=== PATIENT | female | born 1940 | race Caucasian/White ===

== ENCOUNTER → 2016-08-13 | Outpatient (CLI) | payer MEDICARE, BC ==
[~2016-08-13] MED LIST: ATOR40TA78 PO; DOCU100C PO; HYDR25TA6 PO; LEVO125T45 PO; LOSA50TA6 PO; METF500T4 PO; OXYC5TAB2 PO
== END | disposition home or self-care (01) ==
LOC: CFH 07:04
PROVIDERS: ATTEND Family Medicine
DX: M79.89 Other specified soft tissue disorders (principal)

== ENCOUNTER 2018-07-20 11:45 | Inpatient (IN) | payer MEDICARE, BC ==
[~2018-07-20] VITALS: Ht 160 cm; Wt 95.0 kg
[~2018-07-20 11:45] MED LIST changes: +DOCU-180 PO; -DOCU100C PO; -LEVO125T45 PO; +LEVO125T63 PO; +LOSA50TA14 PO; -LOSA50TA6 PO; +METF500T17 PO; -METF500T4 PO
[2018-07-20] MEDS ORDERED: SODIUM CHLORIDE FLUSH 10ML SYR IVF ONE (12:00)
--- NOTE | 2018-07-20 12:02 | NUR ---
BIB [facility] FROM URGENT CARE, SOB/COUGH X3D, RA SAT 77%, PT PLACED ON 2L NC AND GIVEN ALBUTEROL TX BY [facility], O2 87% ON ARRIVAL O2 INCREASED TO 4L. AT BEDSIDE. MD AT BEDSIDE
[2018-07-20 12:16] LABS: BASOPHILS # (AUTO) 0.03 x10^3/uL (0-0.1); BASOPHILS % (AUTO) 1 % (0-1); EOSINOPHILS # (AUTO) 0.01 x10^3/uL (0-0.4); EOSINOPHILS % (AUTO) 0 % (1-7); LYMPHOCYTES # (AUTO) 0.96 x10^3/uL (1-3.4); LYMPHOCYTES % (AUTO) 13 % (22-44); MD NO; MEAN CORPUSCULAR HEMOGLOBIN 29.9 pg (27.0-34.8); MEAN CORPUSCULAR HGB CONC 32.4 g/dL (32.4-35.8); MEAN CORPUSCULAR VOLUME 92.3 fL (80-100); MEAN PLATELET VOLUME 8.9 fL (7.4-10.4); MONOCYTES # (AUTO) 0.65 x10^3/uL (0.2-0.8); MONOCYTES % (AUTO) 9 % (2-9); NEUTROPHILS # (AUTO) 5.58 x10^3/uL (1.8-6.8); NEUTROPHILS % (AUTO) 77 % (42-75); PLATELET COUNT 197 x10^3/uL (130-400); RED BLOOD COUNT 5.35 x10^6/uL (3.82-5.3)
[2018-07-20] MEDS ORDERED: ALBUTEROL/IPRATROPIUM 2.5MG/0.5MG, 3 ML ONE (12:29)
[2018-07-20 12:30] LABS: ALBUMIN 3.5 g/dL (3.4-5.0); ANION GAP 8 mmol/L (5-15); CALCIUM 8.2 mg/dL (8.5-10.1); CHLORIDE 102 mmol/L (98-107)
[2018-07-20] MEDS ORDERED: ACETAMINOPHEN 500 MG TABLET PO ONE (12:30)
[2018-07-20] MEDS: ALBUTEROL/IPRATROPIUM 2.5MG/0.5MG, 3 ML NPPB PRN ×2 (12:32→15:40)
[2018-07-20 12:38] LABS: ALANINE AMINOTRANSFERASE 24 U/L (12-78); ALKALINE PHOSPHATASE 72 U/L (45-117); BILIRUBIN,TOTAL 0.6 mg/dL (0.2-1.0); CREATININE 0.88 mg/dL (0.55-1.02); T4 (THYROXINE) 12.9 mcg/dL (4.8-13.9); TOTAL PROTEIN 7.4 g/dL (6.4-8.2); TROPONIN I < 0.015 ng/mL (0.000-0.045)
[2018-07-20] MEDS ORDERED: ACETAMINOPHEN 500 MG TABLET ONE (12:41)
[2018-07-20] MEDS ORDERED: LOSA100T14 PO (12:57)
[2018-07-20] MEDS ORDERED: LEVO137T25 PO (12:59)
[2018-07-20] MEDS ORDERED: SODIUM CHLORIDE FLUSH 10ML SYR IVF PRN (13:00)
--- NOTE | 2018-07-20 13:03 | NUR ---
PT RESTING IN [facility], AWAITING LAB AND RAD RESULTS, PT TB ADM. FAMILY AT BEDSIDE. PT ON MONITOR, VSS ON 5L NC. CALL LIGHT WITHIN REACH
--- NOTE | 2018-07-20 13:43 | NUR ---
REPORT TO ZULEIKA GUILLERMO
[2018-07-20] MEDS ORDERED: ALBUTEROL/IPRATROPIUM 2.5MG/0.5MG, 3 ML NPPB PRN (14:30)
[2018-07-20 14:31] VITALS: BP 114/70
[2018-07-20] MEDS ORDERED: CYCLOBENZAPRINE 10 MG TABLET PO PRN (15:00)
[2018-07-20] MEDS ORDERED: hydrALAzine 20 MG/ML, 1ML IVPush PRN (15:00)
[2018-07-20] MEDS ORDERED: morphine SULFATE 10 MG/ML, 1ML IVPush PRN (15:00)
[2018-07-20] MEDS ORDERED: BUTALB/APAP/CAFFEINE 50MG/325MG/40MG PO PRN (15:00)
[2018-07-20] MEDS ORDERED: ONDANSETRON 2MG/ML, 2ML IVPush PRN (15:00)
[2018-07-20] MEDS ORDERED: ALBUTEROL/IPRATROPIUM 2.5MG/0.5MG, 3 ML NPPB SCH ×2 (15:00)
[2018-07-20] MEDS ORDERED: DOCUSATE 100 MG CAPSULE PO PRN (15:00)
[2018-07-20] MEDS ORDERED: DEXTROSE 4 GM TAB.CHEW PO PRN (15:30)
[2018-07-20] MEDS ORDERED: GLUCAGON 1 MG IM PRN (15:30)
[2018-07-20] MEDS ORDERED: DEXTROSE 50%, 50ML SYRINGE IVPush PRN (15:30)
[2018-07-20] MEDS ORDERED: LOSARTAN 50MG TABLET ONE (15:52)
[2018-07-20] MEDS: AZITHROMYCIN 500 MG in SODIUM CHLORIDE 0.9% 250 ML IV SCH (15:55)
[2018-07-20] MEDS: LOSARTAN 50MG TABLET PO SCH (16:04)
[2018-07-20] MEDS: INSULIN LISPRO 100 UNITS/ML, PEN SQ-INSULIN SCH ×2 (16:06→20:33)
[2018-07-20 18:59] VITALS: BP 102/64
[2018-07-20] MEDS: ALBUTEROL/IPRATROPIUM 2.5MG/0.5MG, 3 ML NPPB SCH ×2 (19:00→20:00)
[2018-07-20] MEDS: SODIUM CHLORIDE FLUSH 10ML SYR IVF SCH (20:32)
[2018-07-20] MEDS: ATORVASTATIN 40 MG TABLET PO SCH (20:33)
[2018-07-20] MEDS: ENOXAPARIN 40 MG/0.4 ML SQ SCH (20:33)
[2018-07-21 01:46] VITALS: BP 96/65
[2018-07-21 05:30] LABS: BASOPHILS # (AUTO) 0.02 x10^3/uL (0-0.1); BASOPHILS % (AUTO) 0 % (0-1); EOSINOPHILS % (AUTO) 0 % (1-7); LYMPHOCYTES # (AUTO) 1.15 x10^3/uL (1-3.4); LYMPHOCYTES % (AUTO) 18 % (22-44); MD NO; MEAN CORPUSCULAR HEMOGLOBIN 30.2 pg (27.0-34.8); MEAN CORPUSCULAR HGB CONC 32.4 g/dL (32.4-35.8); MEAN CORPUSCULAR VOLUME 93.2 fL (80-100); MEAN PLATELET VOLUME 9.2 fL (7.4-10.4); MONOCYTES # (AUTO) 0.58 x10^3/uL (0.2-0.8); MONOCYTES % (AUTO) 9 % (2-9); NEUTROPHILS # (AUTO) 4.66 x10^3/uL (1.8-6.8); NEUTROPHILS % (AUTO) 73 % (42-75); PLATELET COUNT 182 x10^3/uL (130-400); RED BLOOD COUNT 4.79 x10^6/uL (3.82-5.3); RED CELL DISTRIBUTION WIDTH 17.3 % (9.6-15.2)
[2018-07-21 05:31] LABS: CHLORIDE 103 mmol/L (98-107)
[2018-07-21 05:37] LABS: ANION GAP 7 mmol/L (5-15); CALCIUM 7.5 mg/dL (8.5-10.1); CREATININE 1.16 mg/dL (0.55-1.02)
[2018-07-21 07:00] VITALS: BP 107/62
[2018-07-21] MEDS: INSULIN LISPRO 100 UNITS/ML, PEN SQ-INSULIN SCH ×4 (07:00→21:08)
[2018-07-21] MEDS: ALBUTEROL/IPRATROPIUM 2.5MG/0.5MG, 3 ML NPPB SCH ×4 (07:25→19:50)
[2018-07-21] MEDS: PANTOPROZOLE 40MG TABLET PO SCH (08:05)
[2018-07-21] MEDS: LEVOTHYROXINE 137 MCG TABLET PO SCH (08:05)
[2018-07-21] MEDS: LOSARTAN 50MG TABLET PO SCH (08:06)
[2018-07-21] MEDS: HYDROCHLOROTHIAZIDE 25 MG TABLET PO SCH (08:07)
[2018-07-21] MEDS: SODIUM CHLORIDE FLUSH 10ML SYR IVF SCH ×2 (08:07→21:07)
[2018-07-21] MEDS: GUAIFENESIN 200 MG TABLET PO SCH ×2 (11:08→19:41)
[2018-07-21] MEDS: ACETAMINOPHEN 325 MG TABLET PO PRN (13:55)
[2018-07-21 14:00] VITALS: BP 96/56
[2018-07-21] MEDS: AZITHROMYCIN 500 MG in SODIUM CHLORIDE 0.9% 250 ML IV SCH (16:26)
[2018-07-21] MEDS ORDERED: LOSARTAN 50MG TABLET PO SCH (17:00)
[2018-07-21 19:25] VITALS: BP 102/57
[2018-07-21] MEDS: ATORVASTATIN 40 MG TABLET PO SCH (19:41)
[2018-07-21] MEDS: ENOXAPARIN 40 MG/0.4 ML SQ SCH (19:42)
[2018-07-22 01:13] VITALS: BP 111/77
[2018-07-22 04:29] LABS: ANION GAP 4 mmol/L (5-15); CHLORIDE 104 mmol/L (98-107)
[2018-07-22 04:30] LABS: CREATININE 0.97 mg/dL (0.55-1.02)
[2018-07-22] MEDS: LEVOTHYROXINE 137 MCG TABLET PO SCH (05:35)
[2018-07-22] MEDS: INSULIN LISPRO 100 UNITS/ML, PEN SQ-INSULIN SCH ×4 (07:00→21:42)
[2018-07-22 07:30] VITALS: BP 120/73
[2018-07-22] MEDS: ALBUTEROL/IPRATROPIUM 2.5MG/0.5MG, 3 ML NPPB SCH ×4 (08:45→18:55)
[2018-07-22] MEDS: SODIUM CHLORIDE FLUSH 10ML SYR IVF SCH ×2 (09:28→19:23)
[2018-07-22] MEDS: LOSARTAN 50MG TABLET PO SCH (09:29)
[2018-07-22] MEDS: PANTOPROZOLE 40MG TABLET PO SCH (09:29)
[2018-07-22] MEDS: GUAIFENESIN 200 MG TABLET PO SCH ×2 (09:30→19:23)
[2018-07-22] MEDS: HYDROCHLOROTHIAZIDE 25 MG TABLET PO SCH (09:30)
[2018-07-22 13:30] VITALS: BP 115/60
[2018-07-22] MEDS: AZITHROMYCIN 500 MG in SODIUM CHLORIDE 0.9% 250 ML IV SCH (15:25)
[2018-07-22] MEDS: ACETAMINOPHEN 325 MG TABLET PO PRN (19:23)
[2018-07-22] MEDS: ATORVASTATIN 40 MG TABLET PO SCH (19:23)
[2018-07-22 19:24] VITALS: BP 119/69
[2018-07-22] MEDS: ENOXAPARIN 40 MG/0.4 ML SQ SCH (19:24)
[2018-07-22] MEDS: GUAIFENESIN/COD200MG-20MG/10ML LIQUID PO PRN (19:24)
[2018-07-23 02:06] VITALS: BP 107/67
[2018-07-23] MEDS: ACETAMINOPHEN 325 MG TABLET PO PRN (02:22)
[2018-07-23] MEDS: GUAIFENESIN/COD200MG-20MG/10ML LIQUID PO PRN ×3 (02:22→13:42)
[2018-07-23 06:36] VITALS: BP 123/71
[2018-07-23] MEDS: LEVOTHYROXINE 137 MCG TABLET PO SCH (07:07)
[2018-07-23] MEDS: INSULIN LISPRO 100 UNITS/ML, PEN SQ-INSULIN SCH ×3 (07:13→16:00)
[2018-07-23] MEDS: SODIUM CHLORIDE FLUSH 10ML SYR IVF SCH (07:35)
[2018-07-23] MEDS: PANTOPROZOLE 40MG TABLET PO SCH (07:35)
[2018-07-23] MEDS: HYDROCHLOROTHIAZIDE 25 MG TABLET PO SCH (07:36)
[2018-07-23] MEDS: LOSARTAN 50MG TABLET PO SCH (07:36)
[2018-07-23] MEDS: GUAIFENESIN 200 MG TABLET PO SCH (07:36)
[2018-07-23] MEDS: ALBUTEROL/IPRATROPIUM 2.5MG/0.5MG, 3 ML NPPB SCH (08:00)
[2018-07-23] MEDS ORDERED: PRED10TA PO (13:03)
[2018-07-23] MEDS ORDERED: AZIT500T5 PO (13:03)
[2018-07-23] MEDS ORDERED: BENZ100C PO (13:03)
[2018-07-23 13:16] VITALS: BP 133/76
[2018-07-23] MEDS ORDERED: ALBU8.5H8 INH (13:37)
[2018-07-23] MEDS: AZITHROMYCIN 500 MG in SODIUM CHLORIDE 0.9% 250 ML IV SCH (15:05)
== END 2018-07-23 16:38 | disposition home or self-care (01) | DRG 189 ==
LOC: ED 12:53 → EDIP 12:54 → 3NW 14:20
PROVIDERS: ADMIT Internal Medicine; ATTEND Internal Medicine
DX: J96.01 Acute respiratory failure with hypoxia (principal); J45.901 Unspecified asthma with (acute) exacerbation; J44.0 Chronic obstructive pulmonary disease with (acute) lower respiratory infection; J44.1 Chronic obstructive pulmonary disease with (acute) exacerbation; Z87.891 Personal history of nicotine dependence; E11.9 Type 2 diabetes mellitus without complications; E78.5 Hyperlipidemia, unspecified; J20.9 Acute bronchitis, unspecified; I10 Essential (primary) hypertension; E89.0 Postprocedural hypothyroidism; Z82.3 Family history of stroke; Z82.49 Family history of ischemic heart disease and other diseases of the circulatory system; Z83.3 Family history of diabetes mellitus
CPT/HCPCS: 36415; 71045; 71250; 80048; 80053; 82962; 83735; 83880; 84436; 84443; 84484; 85025; 87070; 87077; 87186; 87205; 93005; 94640; 99285; G0378; J0456; J7620; J1815; J7050; J7512

== ENCOUNTER → 2018-09-01 | Outpatient (CLI) | payer MEDICARE, BC ==
[~2018-09-01] MED LIST changes: +ALBU8.5H8 INH; +AZIT500T5 PO; +BENZ100C PO; +LEVO137T25 PO; +LOSA100T14 PO; +PRED10TA PO
== END | disposition home or self-care (01) ==
LOC: CFH 08:14
PROVIDERS: ATTEND Internal Medicine
DX: R91.1 Solitary pulmonary nodule (principal); I70.0 Atherosclerosis of aorta; I51.7 Cardiomegaly; K44.9 Diaphragmatic hernia without obstruction or gangrene
CPT/HCPCS: 71250

== ENCOUNTER 2018-09-08 12:24 | Emergency (ER) | payer MEDICARE, BC ==
[~2018-09-08] VITALS: Ht 160 cm; Wt 96.5 kg
--- NOTE | 2018-09-08 12:35 | NUR ---
PATIENT DAVID MA FROM HOME FOR DIZZINESS, NEAR SYNCOPAL EPISODE TODAY AT 1200. PATIENT REPORTS HR 60'S-130'S AT HOME AND PALPITATIONS. SEEN AND DC'D FROM [facility] 1 MONTH AGO FOR PNA. IV ESTABLISHED BY EMS EN ROUTE. BS-80, 3L NC HOME 02, DENIES CP/SOB. DENIES PAIN. DENIES CARDIAC HX. MALL MANAGER ON PATIENT, AWAITING MD ORDERS, CALL LIGHT WITHIN REACH, NADN. SPOUSE AT BEDSIDE.
[2018-09-08] MEDS ORDERED: HYDR12.517 PO (12:42)
--- NOTE | 2018-09-08 13:06 | NUR ---
break coverage: assumed care of pt on behalf of primary RN for break coverage only. pt here for palpitations TOP FRAME MAKER, but now denies. denies CP, has no increased SOB. pt sitting up on gurney with SO at bedside. CXR at bedside. pt updated on POC
[2018-09-08 13:37] LABS: BASOPHILS # (AUTO) 0.03 x10^3/uL (0-0.1); BASOPHILS % (AUTO) 1 % (0-1); EOSINOPHILS # (AUTO) 0.12 x10^3/uL (0-0.4); EOSINOPHILS % (AUTO) 2 % (1-7); LYMPHOCYTES # (AUTO) 1.44 x10^3/uL (1-3.4); LYMPHOCYTES % (AUTO) 21 % (22-44); MD NO; MEAN CORPUSCULAR HEMOGLOBIN 30.9 pg (27.0-34.8); MEAN CORPUSCULAR HGB CONC 32.3 g/dL (32.4-35.8); MEAN CORPUSCULAR VOLUME 95.6 fL (80-100); MEAN PLATELET VOLUME 9.1 fL (7.4-10.4); MONOCYTES # (AUTO) 0.51 x10^3/uL (0.2-0.8); MONOCYTES % (AUTO) 8 % (2-9); NEUTROPHILS # (AUTO) 4.63 x10^3/uL (1.8-6.8); NEUTROPHILS % (AUTO) 69 % (42-75); PLATELET COUNT 183 x10^3/uL (130-400); RED BLOOD COUNT 4.25 x10^6/uL (3.82-5.3); RED CELL DISTRIBUTION WIDTH 15.6 % (9.6-15.2)
--- NOTE | 2018-09-08 13:38 | NUR ---
NEW ORDERS FOR CTA, VS UPDATED IN CHART. PATIENT SITTING IN GURNEY SPEAKING WITH SPOUSE AT BEDSIDE, NAKIA.
[2018-09-08 13:44] LABS: D-DIMER 0.82 ug/mlFEU (0.00-0.52); INTERNATIONAL NORMALIZED RATIO 0.96 (0.93-1.1); PROTHROMBIN TIME 10.1 Seconds (9.6-11.5)
[2018-09-08 13:45] LABS: ALBUMIN 3.5 g/dL (3.4-5.0); CALCIUM 7.9 mg/dL (8.5-10.1)
[2018-09-08 13:51] LABS: ALANINE AMINOTRANSFERASE 23 U/L (12-78); ALKALINE PHOSPHATASE 47 U/L (45-117); BILIRUBIN,TOTAL 0.7 mg/dL (0.2-1.0); CREATININE 0.89 mg/dL (0.55-1.02); TOTAL PROTEIN 6.8 g/dL (6.4-8.2); TROPONIN I < 0.015 ng/mL (0.000-0.045)
--- NOTE | 2018-09-08 13:52 | NUR ---
PATIENT ASSISTED TO BATHROOM, STAND-BY ASSIST WITH STEADY GAIT, PATIENT BACK TO BED, NADN. PATIENT/SPOUSE UPDATED ON POC. AWAITING CT.
[2018-09-08 13:53] LABS: ANION GAP 3 mmol/L (5-15); CHLORIDE 100 mmol/L (98-107)
--- NOTE | 2018-09-08 14:20 | NUR ---
PATIENT NEXT FOR CTA PER HUMAN [employer]OURCES OPERATIONS MANAGER.
--- NOTE | 2018-09-08 14:49 | NUR ---
Quang hollingsworth in [facility] - 09/08/18 at 1451 by MARY RESULTS BACK, CHART UP FOR RECHECK.
--- NOTE | 2018-09-08 14:51 | NUR ---
PATIENT IN RADIOLOGY FOR CTA.
--- NOTE | 2018-09-08 14:59 | NUR ---
PATIENT BACK FROM CT, VS UPDATED IN CHART. SPOUSE REMAINS AT BEDSIDE, NADN.
[2018-09-08] MEDS ORDERED: OMNIPAQUE 350 MG/ML, 100ML BOTTLE ONE (15:03)
--- NOTE | 2018-09-08 15:15 | NUR ---
LUNCH RN: Pt assisted to bathroom.
--- NOTE | 2018-09-08 15:26 | NUR ---
JOVANNA RN: student, Dr. Gomez, at bedside to discuss ED findings and d/c information. Pt's spouse left at this time to retrieve her O2 and vehicle from the pt's home. Pt's spouse will return to picker / packer pt from ED.
[2018-09-08 16:09] VITALS: BP 141/64
--- NOTE | 2018-09-08 16:25 | NUR ---
Patient/Caregiver given discharge instructions and they have confirmed that they understand the instructions. Patient assisted to DC desk by spouse via wheelchair, spouse brought home 02.
== END 2018-09-08 16:29 | disposition home or self-care (01) ==
LOC: ED 13:23
DX: R00.2 Palpitations (principal); J44.9 Chronic obstructive pulmonary disease, unspecified; E78.5 Hyperlipidemia, unspecified; I10 Essential (primary) hypertension; E11.9 Type 2 diabetes mellitus without complications; Z87.891 Personal history of nicotine dependence
CPT/HCPCS: 36415; 71045; 71275; 80053; 84484; 85025; 85379; 85610; 93005; 99284; Q9967

== ENCOUNTER 2019-04-04 09:32 | Outpatient (CLI) | payer MEDICARE, BC ==
[~2019-04-04 09:32] MED LIST changes: +AZIT500T10 PO; -AZIT500T5 PO; +HYDR12.517 PO
== END 2019-04-04 23:59 | disposition home or self-care (01) ==
LOC: PETCFH 09:32
PROVIDERS: ATTEND Internal Medicine
DX: R91.1 Solitary pulmonary nodule (principal)
CPT/HCPCS: 78815; A9552

== ENCOUNTER 2019-05-19 02:49 | Emergency (ER) | payer MEDICARE, BC ==
[~2019-05-19] VITALS: Ht 160 cm; Wt 100.0 kg
[2019-05-19] MEDS ORDERED: ALBUTEROL SULFATE 2.5 MG/3 ML ONE (03:13)
--- NOTE | 2019-05-19 03:13 | NUR ---
PT BIB EMS WITH C/O LEFT MIDAXILARY LINE CP. PT REPORTS PAIN WITH BREATHING, HAS HX OF COPD. PT DENIES RADIATION, OR HX OF SAME. 100MG FENTANYL GIVEN IM, 50MG FENTANYL IV, 324 ASA GIVEN BY EMS. PT CONNECTED TO ALL MONITORING, EKG PERFORMED ON TRIAGE. ERMD IN ROOM TO EVAL PT UPON ARRIVAL. FAMILY AT BS FOR SUPPORT, CALL LIGHT WITHIN REACH, ALL SAFETY MEASURES IN PLACE.
[2019-05-19 03:29] LABS: BASOPHILS # (AUTO) 0.03 x10^3/uL (0-0.1); BASOPHILS % (AUTO) 0 % (0-1); EOSINOPHILS # (AUTO) 0.14 x10^3/uL (0-0.4); EOSINOPHILS % (AUTO) 2 % (1-7); LYMPHOCYTES # (AUTO) 1.39 x10^3/uL (1-3.4); LYMPHOCYTES % (AUTO) 20 % (22-44); MD NO; MEAN CORPUSCULAR HEMOGLOBIN 30.5 pg (27.0-34.8); MEAN CORPUSCULAR HGB CONC 32.4 g/dL (32.4-35.8); MEAN CORPUSCULAR VOLUME 94.2 fL (80-100); MEAN PLATELET VOLUME 8.7 fL (7.4-10.4); MONOCYTES # (AUTO) 0.53 x10^3/uL (0.2-0.8); MONOCYTES % (AUTO) 8 % (2-9); NEUTROPHILS # (AUTO) 4.96 x10^3/uL (1.8-6.8); NEUTROPHILS % (AUTO) 70 % (42-75); PLATELET COUNT 198 x10^3/uL (130-400); RED BLOOD COUNT 3.52 x10^6/uL (3.82-5.3)
[2019-05-19] MEDS ORDERED: ALBUTEROL SULFATE 2.5 MG/3 ML NPPB ONE (03:30)
[2019-05-19 03:38] LABS: ALANINE AMINOTRANSFERASE 22 U/L (12-78); ALBUMIN 3.2 g/dL (3.4-5.0); ANION GAP 6 mmol/L (5-15); CHLORIDE 103 mmol/L (98-107); CREATININE 0.93 mg/dL (0.55-1.02)
[2019-05-19 03:42] LABS: ALKALINE PHOSPHATASE 57 U/L (45-117); BILIRUBIN,TOTAL 0.4 mg/dL (0.2-1.0); TOTAL PROTEIN 6.9 g/dL (6.4-8.2); TROPONIN I < 0.015 ng/mL (0.000-0.045)
[2019-05-19] MEDS ORDERED: OMNIPAQUE 350 MG/ML, 100ML BOTTLE ONE (04:00)
--- NOTE | 2019-05-19 04:23 | NUR ---
PT BACK FROM IMAGING, UPDATED ON POC. PROVIDED ADDITIONAL WARM BLANKET FOR COMFORT.
[2019-05-19 05:51] VITALS: BP 145/68
--- NOTE | 2019-05-19 05:53 | NUR ---
PT RESTING ON [place] WITH FAMILY AT BS. CALL LIGHT WITHIN REACH, MONITORING IN PLACE.
== END 2019-05-19 06:35 | disposition home or self-care (01) ==
LOC: ED 03:21
DX: M94.0 Chondrocostal junction syndrome [Tietze] (principal); R07.89 Other chest pain; I10 Essential (primary) hypertension; E11.9 Type 2 diabetes mellitus without complications; E78.5 Hyperlipidemia, unspecified; J44.9 Chronic obstructive pulmonary disease, unspecified; Z87.891 Personal history of nicotine dependence
CPT/HCPCS: 36415; 71045; 71275; 80053; 83880; 84484; 85025; 85379; 93005; 94640; 99285; J7613; Q9967; 99284

== ENCOUNTER → 2019-12-13 | Outpatient (CLI) | payer MEDICARE, BC | END | disposition home or self-care (01) | LOC: CFH 10:26 | PROVIDERS: ATTEND Internal Medicine | DX: R91.1 Solitary pulmonary nodule (principal) | CPT/HCPCS: 71250 ==

== ENCOUNTER 2020-11-07 07:33 | Outpatient (CLI) | payer MEDICARE, BC ==
[~2020-11-07 07:33] MED LIST changes: +AMLO-211 PO; +ASPI81TA45 PO; +ATOR20TA86 PO; +DOCU-131 PO; -DOCU-180 PO; +DOCU-192 PO; +FLUT1BLS3 IH; +OLME40TA12 PO; +ONDA4TAB7 PO; +OXYC-380 PO; +POLY17PO5 PO
== END 2020-11-07 23:59 | disposition home or self-care (01) ==
LOC: ROC 07:33
PROVIDERS: ATTEND Radiology Radiation Oncology
DX: C34.11 Malignant neoplasm of upper lobe, right bronchus or lung (principal); J96.10 Chronic respiratory failure, unspecified whether with hypoxia or hypercapnia; J44.9 Chronic obstructive pulmonary disease, unspecified; I10 Essential (primary) hypertension; E11.9 Type 2 diabetes mellitus without complications; E78.5 Hyperlipidemia, unspecified; E66.01 Morbid (severe) obesity due to excess calories; Z68.41 Body mass index [BMI] 40.0-44.9, adult; Z87.891 Personal history of nicotine dependence; Z99.81 Dependence on supplemental oxygen
CPT/HCPCS: G0463

== ENCOUNTER 2020-11-09 21:19 | Emergency (ER) | payer MEDICARE, BC ==
[~2020-11-09] VITALS: Ht 160 cm; Wt 105.6 kg
[~2020-11-09 21:19] MED LIST changes: -OXYC-380 PO; +OXYC-501 PO
[2020-11-09] MEDS ORDERED: OMNIPAQUE 350 MG/ML, 100ML BOTTLE ONE (22:00)
[2020-11-09 22:04] LABS: BASOPHILS % (AUTO) 0 % (0-1); EOSINOPHILS % (AUTO) 1 % (1-7); LYMPHOCYTES % (AUTO) 11 % (22-44); MEAN CORPUSCULAR HEMOGLOBIN 29.6 pg (27.0-34.8); MEAN CORPUSCULAR HGB CONC 33.9 g/dL (32.4-35.8); MEAN PLATELET VOLUME 9.4 fL (7.4-10.4); MONOCYTES % (AUTO) 2 % (2-9); NEUTROPHILS % (AUTO) 85 % (42-75); PLATELET COUNT 112 x10^3/uL (130-400); RED BLOOD COUNT 3.08 x10^6/uL (3.82-5.3); RED CELL DISTRIBUTION WIDTH 14.7 % (9.6-15.2)
[2020-11-09 22:15] LABS: ALBUMIN 2.9 g/dL (3.4-5.0); ANION GAP 7 mmol/L (5-15); CALCIUM 8.1 mg/dL (8.5-10.1); CHLORIDE 90 mmol/L (98-107)
[2020-11-09 22:20] LABS: ALANINE AMINOTRANSFERASE 42 U/L (12-78); ALKALINE PHOSPHATASE 59 U/L (45-117); BILIRUBIN,TOTAL 0.4 mg/dL (0.2-1.0); CREATININE 0.65 mg/dL (0.55-1.02); TOTAL PROTEIN 6.5 g/dL (6.4-8.2); TROPONIN I < 0.015 ng/mL (0.000-0.045)
[2020-11-09 23:06] VITALS: BP 133/66
[2020-11-09] MEDS ORDERED: MORPHINE SULFATE 4 MG/ML, 1ML ONE (23:19)
[2020-11-09] MEDS ORDERED: ONDANSETRON 2MG/ML, 2ML ONE (23:19)
[2020-11-09] MEDS ORDERED: MORPHINE SULFATE 4 MG/ML, 1ML IVPush PRN (23:30)
[2020-11-09] MEDS ORDERED: ONDANSETRON 2MG/ML, 2ML IVPush ONE (23:30)
== END 2020-11-10 00:59 | disposition home or self-care (01) ==
LOC: ED 23:59
DX: I48.92 Unspecified atrial flutter (principal); M54.6 Pain in thoracic spine; C78.00 Secondary malignant neoplasm of unspecified lung; I10 Essential (primary) hypertension; E11.9 Type 2 diabetes mellitus without complications; J44.9 Chronic obstructive pulmonary disease, unspecified; E78.5 Hyperlipidemia, unspecified; E03.9 Hypothyroidism, unspecified
CPT/HCPCS: 36415; 71275; 80053; 84484; 85025; 93005; 96374; 96375; 99285; J2270; J2405; Q9967

== ENCOUNTER 2020-11-20 11:09 | Emergency (ER) | payer MEDICARE, BC ==
[~2020-11-20] VITALS: Ht 160 cm; Wt 98.5 kg
--- NOTE | 2020-11-20 11:27 | NUR ---
PATIENT WALKED BACK FROM TRIAGE WITH CHIEF C/O CONSTIPATION. PER PATIENT SHE WAS RECENTLY HOSPITALIZED FOR LUNG CANCER AND DISCHARGED WITH LAXATIVE. PATIENT UNABLE TO HAVE A BM AND THIS MORNING UNABLE TO URINATE. NADN, CONNECTED TO MONITOR, VSS, CALL LIGHT WITHIN REACH.
--- NOTE | 2020-11-20 12:17 | NUR ---
ERMD AT BEDSIDE FOR EVALUATION.
[2020-11-20] MEDS ORDERED: METHYLNALTREXONE 12 MG/0.6 ML SYR SQ ONE ×2 (12:30→12:37)
--- NOTE | 2020-11-20 12:31 | NUR ---
PATIENT TO IMAGING.
--- NOTE | 2020-11-20 13:26 | NUR ---
PATIENT GIVEN RELISTOR AND ENEMA, PATIENT TOLERATED BOTH WELL. PATIENT ABLE TO PASS LARGE AMOUNT OF STOOL WITHOUT DIFFICULTY.
--- NOTE | 2020-11-20 13:53 | NUR ---
RECEIVED REPORT FROM TORSTEN GUILLERMO. TRANSFER OF CARE.
[2020-11-20 14:20] VITALS: BP 128/63
--- NOTE | 2020-11-20 14:21 | NUR ---
Patient/Caregiver given discharge instructions and they have confirmed that they understand the instructions. Patient WHEELCHAIRED OUT WITH 4LNC. PT HAD CONCENTRATER AT HOME AND USES 4L NC AT HOME. NAD, all questions answered appropriately, denies additional needs at this time. No personal belongings left in room after discharge. SON WITH PT
[2020-12-08] MEDS ORDERED: OXYC10TA47 PO (14:55)
[2020-12-10] MEDS ORDERED: AMOX1TAB64 PO (10:22)
[2020-12-10] MEDS ORDERED: CIPR500T87 PO (10:22)
[2020-12-10] MEDS ORDERED: OXYC10TA47 PO (10:22)
== END 2020-11-20 14:23 | disposition home or self-care (01) ==
LOC: ED 11:46
DX: K59.00 Constipation, unspecified (principal); E11.9 Type 2 diabetes mellitus without complications
CPT/HCPCS: 74021; 96372; 99284